=== PATIENT | female | born 1965 | race Asian ===

== ENCOUNTER 2016-11-25 11:30 | Inpatient (IN) | payer OTHER ==
[2016-11-25] MEDS ORDERED: CLOPIDOGREL BISULFATE 75 MG TAB PO ONE (15:30)
[2016-11-25] MEDS ORDERED: IOPAMIDOL (ISOVUE-300) 100 ML BTL IV ONE (15:38)
[2016-11-25] MEDS ORDERED: MIDAZOLAM 2 MG/2 ML VIAL ONE (15:38)
[2016-11-25] MEDS ORDERED: HEPARIN 10,000 UNIT/10 ML MDV ONE (15:47)
[2016-11-25] MEDS ORDERED: PROPOFOL 200 MG/20 ML VIAL ONE (15:53)
[2016-11-25] MEDS ORDERED: fentaNYL 100 MCG/2 ML INJ ONE (15:53)
[2016-11-25] MEDS ORDERED: LIDOCAINE 2% 5 ML SDV ONE (15:59)
[2016-11-25] MEDS ORDERED: ROCURONIUM 100 MG/10 ML VIAL ONE (15:59)
[2016-11-25] MEDS ORDERED: DESFLURANE 240 ML BOTTLE IH ONE (16:12)
[2016-11-25] MEDS ORDERED: ONDANSETRON 4 MG/2 ML VIAL ONE (16:52)
[2016-11-25] MEDS ORDERED: DEXAMETHASONE 4 MG/ML VIAL ONE (16:53)
[2016-11-25] MEDS ORDERED: SUGAMMADEX SODIUM 200 MG/2 ML VIAL IVP ONE (17:24)
[2016-11-25] MEDS ORDERED: POLYETHYLENE GLYCOL 3350 17 GM PKT PO PRN (17:58)
[2016-11-25] MEDS ORDERED: OXYCODONE/APAP 5/325 TAB PO PRN (17:58)
[2016-11-25] MEDS ORDERED: MAG HYDROX/AL HYDROX/SIMETH 30 ML UDCUP PO PRN (17:58)
[2016-11-25] MEDS ORDERED: LACTULOSE 20 GM/30 ML UDCUP PO PRN (17:58)
[2016-11-25] MEDS ORDERED: BISACODYL 10 MG SUPP PR PRN (17:58)
[2016-11-25] MEDS ORDERED: MAGNESIUM HYDROXIDE 30 ML UDCUP PO PRN (17:58)
[2016-11-25] MEDS ORDERED: NS W/ 20 KCl/L 1,000 ML IV SCH (18:00)
--- NOTE | 2016-11-25 18:06 | POSTOPPROG ---
Post Op Note Date of Operation: 11/25/16 Surgeon: Frank Mckeon Reinforcing Steel Placer: none Anesthesia: GET(General Endotracheal) Pre-op Diagnosis: right ICA unruptured aneurysm Post-op Diagnosis: same Indication: see above Procedure: right ICA Pipeline embolization Findings: successful stent placement with contrast stasis in aneurysm Inf/Abcess present in the surg proc area at time of surgery?: No EBL: Minimal Complications: none Specimen(s): none
[2016-11-25] MEDS: HYDROCODONE/APAP 10/325 TAB PO PRN ×2 (18:26→21:37)
[2016-11-25] MEDS: SENNOSIDES/DOCUSATE SODIUM TAB PO SCH (21:35)
[2016-11-26] MEDS: HYDROCODONE/APAP 10/325 TAB PO PRN (04:11)
[2016-11-26 07:21] LABS: ALPHA ANGLE 70.4 degrees (53-72); K TIME 1.2 minutes (1-3); MAXIMUM AMPLITUDE 68.2 mm (50-70); R TIME 5.8 minutes (5-10)
[2016-11-26 07:22] LABS: AA % INHIBITION 94.8 % (0-100); ADP % INHIBITION 54.2 % (0-100)
[2016-11-26] MEDS ORDERED: ACET/CAFFEINE/BUTA FIORICET 1 EACH TAB PO PRN (07:26)
--- NOTE | 2016-11-26 08:01 | NEUSURGPN ---
Assessment/Plan: A: 51 yo F POD#1 s/p right ICA Pipeline embolization P: -Pain management - will trial Fioricet -Platelet study pending -Plan for DC to home later today -D/w Dr Mckeon -Call NS with any issues Subjective: Pt resting in bed, has right frontal headache Objective: AAOx3 NAD No droop CN II-XII grossly intact Motor 5/5 BUE/BLE +LT Urinary Catheter in Place: No - Physician Discussed Patient with : Mike Neurosurgery Physical Exam - Vitals, I&O, Labs I and O 11/25/16 11/26/16 11/27/16 05:59 05:59 05:59 Intake Total 1700 Output Total 2400 Balance -700 Weight 72.5 kg Intake: Oral (ml) 700 IV Infused (ml) 1000 NS W/ 20 KCl/L 1,000 ml @ 1000 100 mls/hr IV CONT VINNY Rx#:[id number] Output: Urine (ml) 2400 Catheter 1200 Toilet 1200 Other: Output Comment Catheter STRAIGHT CATH Vital Signs Temp Pulse Resp BP Pulse Ox 36.7 C 78 16 106/64 99 11/25/16 20:00 11/26/16 06:00 11/26/16 06:00 11/26/16 06:00 11/26/16 06:00 ICD10 Worksheet Patient Problems: Problems Problem Status Diagnosed Aneurysm Acute - ICD10 Problem Qualifiers (1) Aneurysm
[2016-11-26] MEDS: SENNOSIDES/DOCUSATE SODIUM TAB PO SCH (08:08)
[2016-11-26 08:14] VITALS: RESP 18; TEMP 97.7
[2016-11-26] MEDS ORDERED: CLOPIDOGREL BISULFATE 75 MG TAB PO SCH (09:00)
[2016-11-26] MEDS ORDERED: ASPIRIN 81 MG CHEWABLE TAB PO SCH (09:00)
[2016-11-26] MEDS ORDERED: ALBUTEROL HFA ANES ONLY 200 PUFFS/8.5 GM MDI IH PRN (10:57)
[2016-11-26] MEDS ORDERED: ALBUTEROL 60 PUFFS/8 GM MDI IH PRN (11:08)
--- NOTE | 2016-11-26 11:11 | IR ---
Interventional Neuroradiology Angiography November 26, 2016 Attending: Frank Mckeon MD Production Control Expert: None Procedures 1. Selective catheterization and cerebral angiography, right internal carotid artery. 2. Pipeline embolization of right paraclinoid aneurysm. 3. Follow up angiography through an existing catheter. 4. Right common femoral artery angiography. 5. Ultrasound guidance for groin puncture. Preoperative Diagnosis: Unruptured right paraclinoid aneurysm measuring 5.8 x 3.5 mm with a 3 mm neck. 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 Brief Clinical History: Jean-Claude Buchanan is a 51-year-old woman who presented with an incidentally found right paraclinoid aneurysm. We had done previous diagnostic cerebral angiography confirming that this would be suitable for a pipeline embolization. She presents electively today for this procedure. She has previously been on aspirin and Plavix for one week and platelet mapping studies yesterday showed reasonable response. Prior to the procedure she was loaded with another 300 mg of Plavix. Procedure: After informed consent was obtained from the patient, she was brought to the angiography suite and placed in the supine position on the angiography table. A formal timeout was performed identifying the patient by name, medical record number, and date of . The endotracheal tube was placed, and general endotracheal anesthesia was smoothly induced and all appropriate monitoring lines were placed by anesthesia. A baseline activated clotting time was sent and was 162. At this point, bilateral groins were prepared and draped in normal sterile fashion. Ultrasound guidance was used to puncture the right common femoral artery using a 5-Martiniquais Micropuncture set and using Seldinger technique a 6-Martiniquais working Jud sheath was placed into the right common femoral artery. A 5-Martiniquais TIFFANIE diagnostic catheter over an 0.035 angled Glidewire was then placed through the sheath and advanced into the aortic arch. Under direct fluoroscopic imaging, we selectively catheterized the right internal carotid artery. Angiography was performed in AP and lateral views confirming good anatomy and the known aneurysm. At this point an exchange length Glidewire was used to exchange the diagnostic catheter for a 6- Martiniquais shuttle sheath which was placed into the internal carotid artery. There was mild spasm around the internal carotid artery at this time, but this did not require treatment. A coaxial system of a 0.027 inch Phenom microcatheter over a Sinker II Glidewire through a 0.058 inch Navien intermediate catheter was then advanced through the shuttle and into the internal carotid artery. Under high magnification and roadmapping, the microcatheter was advanced into the right MCA. The microwire was then removed. A 4.5 x 16 mm pipeline embolization device was then loaded into the microcatheter and advanced to the tip. A few millimeters of the stent were deployed to allow for expansion, and then the stent was pulled back into its appropriate distal landing zone proximal to the PCom. Through a combination of stent deployment and catheter manipulation, the stent was then deployed around the carotid siphon with proximal landing zone in the proximal cavernous segment. Control angiography was performed showing complete expansion of the stent with no endoleak. Final angiography was then performed in AP and lateral views. All the catheters were removed. Right common femoral artery angiography was performed through the guide catheter and a StarClose groin closure device was deployed. At the end of the procedure, the patient was awakened, was extubated, with a normal neurologic exam. The groin was soft with no hematoma and distal pulses were palpable. Radiographic Interpretation Right internal carotid artery (cerebral): The distal portions of the cervical right internal carotid artery are normal. The petrous and cavernous segments are normal. The ophthalmic artery origin is normal, however, there is a 5.8 x 3.5 mm aneurysm projecting superolaterally from the clinoid segment of the carotid. The aneurysm has a 3 mm neck. The ophthalmic segment is slightly dysplastic but otherwise normal. The remainder of the posterior communicating artery and anterior communicating artery are normal. The carotid bifurcation is normal. The MCA and MAGALYS territories are normal with no sign of other aneurysms. The remainder of the arterial, capillary, and venous phases are normal. Right internal carotid artery (cerebral, postpipeline embolization): Again, the distal portions of the cervical internal carotid artery are relatively normal. There is mild vasospasm. The pipeline embolization device is seen from the proximal cavernous segment to the proximal supraclinoid segment covering the neck of the aneurysm. The stent is well apposed to the vessel wall in all locations. There is contrast stasis within the aneurysm into the venous phase. The ophthalmic artery is still filling. The remainder of the arterial, capillary, and venous phases is normal with no vessel cutoff. Right common femoral artery: Angiogram of the right common femoral artery shows the sheath entering into the straight portion of the common femoral artery. There is no sign of dissection or other vessel injury. The profunda femoris and superficial femoral artery have normal runoff. Impressions: Successful pipeline embolization of a right paraclinoid 5.8 x 3.5 mm aneurysm. There were no complications with the procedure. LUDIVINA
[2016-11-26 11:31] VITALS: BP 118/69
[2016-11-26 11:32] VITALS: PULSE 90; O2SAT 97
[2016-11-26] MEDS ORDERED: NORTRIPTYLINE HCL 10 MG CAP PO SCH (21:00)
[2016-11-27] MEDS ORDERED: [UNRECOGNIZED DRUG - OTHER] PO SCH (09:00)
[2016-11-27] MEDS ORDERED: NON-FORMULARY NEW DRUG (Losartan Potassium [Cozaar] 100 MG) PO SCH (09:00)
[2016-11-27] MEDS ORDERED: LOSARTAN POTASSIUM 50 MG TAB PO SCH (09:00)
== END 2016-11-26 11:19 | disposition home or self-care (01) | DRG 27 ==
LOC: FIMAGING 11:30 → F2N 17:46
PROVIDERS: ADMIT Neurological Surgery; ATTEND Neurological Surgery
PROC: B3161ZZ Fluoroscopy of Right Internal Carotid Artery using Low Osmolar Contrast (ICD-10-PCS; principal; 2016-11-25)
PROC: 03V Upper Arteries, Restriction (ICD-10-PCS; principal; 2016-11-25)
DX: I67.1 Cerebral aneurysm, nonruptured (principal); I10 Essential (primary) hypertension
CPT/HCPCS: C1769; C1887; C1893; C1894; J1100; J1644; J2250; J2405; J2704; J3010; Q9967

== ENCOUNTER → 2017-03-09 | Outpatient (CLI) | payer OTHER ==
[~2017-03-09] MED LIST: GADOBUTROL 10 ML VIAL IVP ONE
== END ==
LOC: FIMAGING 18:07
DX: R29.818 Other symptoms and signs involving the nervous system (principal); Z86.79 Personal history of other diseases of the circulatory system
CPT/HCPCS: A9585

== ENCOUNTER → 2017-06-13 | Outpatient (CLI) | payer OTHER | LOC: FIMAGING 08:49 | DX: R93.0 Abnormal findings on diagnostic imaging of skull and head, not elsewhere classified (principal); R29.818 Other symptoms and signs involving the nervous system; Z86.79 Personal history of other diseases of the circulatory system; Z98.890 Other specified postprocedural states | CPT/HCPCS: A9585 ==